=== PATIENT | female | born 1995 | race Caucasian/White ===

== ENCOUNTER 2018-08-08 17:16 | Emergency (ER) | payer MEDICAID | END 2018-08-08 20:57 | disposition home or self-care (01) | LOC: ED 17:16 ==

== ENCOUNTER 2018-12-16 21:05 | Emergency (ER) | payer MEDICAID ==
[~2018-12-16] VITALS: Ht 167.6 cm; Wt 89.9 kg
[2018-12-16 23:00] LABS: UA SPECIFIC GRAVITY 1.025 (1.005-1.035); microscopic required? YES; urine erythrocyte 3+ (NEGATIVE)
[2018-12-16 23:18] VITALS: BP 137/85
== END 2018-12-16 23:22 | disposition home or self-care (01) ==
LOC: ED 21:05
PROVIDERS: Emergency Medicine
DX: N30.90 Cystitis, unspecified without hematuria (principal)

== ENCOUNTER 2019-01-15 21:06 | Emergency (ER) | payer MEDICAID ==
[~2019-01-15] VITALS: Ht 175.3 cm; Wt 89.4 kg
[2019-01-15 21:30] VITALS: Ht 175.3 cm; Wt 89.4 kg
[2019-01-16 00:21] VITALS: BP 117/74
== END 2019-01-16 00:21 | disposition home or self-care (01) ==
LOC: ED 21:06
DX: B34.9 Viral infection, unspecified (principal); R51 Headache; H53.149 Visual discomfort, unspecified; Z86.73 Personal history of transient ischemic attack (TIA), and cerebral infarction without residual deficits; V43.52XA Car driver injured in collision with other type car in traffic accident, initial encounter; Y93.I9 Activity, other involving external motion; Y92.488 Other paved roadways as the place of occurrence of the external cause; Y99.8 Other external cause status
CPT/HCPCS: 87804; J2765; J7030